=== PATIENT | male | born 1960 | race Caucasian/White ===

== ENCOUNTER 2018-06-16 17:01 | Emergency (ER) | payer MEDICAID ==
[~2018-06-16] VITALS: Ht 172.7 cm; Wt 90.7 kg
[2018-06-16 17:03] VITALS: BP_SYST 141
--- NOTE | 2018-06-16 17:03 | NUR ---
Arrived in custody for ok to book due to history of CABG, DM, HTN. Patient began having multiple compliants including abd pain, and weakness. Patient admits to drinking several beers this afternoon. Patient to ER [facility] 1 to gown for evaluation. Side rails up. Assumed care of patient.
--- NOTE | 2018-06-16 17:13 | NUR ---
ER Dr. Matthews at bedside examining patient.
--- NOTE | 2018-06-16 17:27 | NUR ---
Discharged into [facility] #[id number]. Patient was given written and verbal discharge instructions. [facility] was instructed that the patient must have access to home medications, this instruction was also provided in writing on the ok to book form. ID band removed.
== END 2018-06-16 17:27 ==
LOC: SED 17:01
DX: R10.9 Unspecified abdominal pain (principal); R53.1 Weakness; E78.00 Pure hypercholesterolemia, unspecified; E11.9 Type 2 diabetes mellitus without complications; I10 Essential (primary) hypertension; Z95.1 Presence of aortocoronary bypass graft
CPT/HCPCS: 99283